=== PATIENT | female | born 1980 | race Caucasian/White ===

== ENCOUNTER 2021-08-17 11:03 | Outpatient (CLI) | payer OTHER, SELFPAY ==
[2021-08-17 12:08] LABS: Influenza A QL RT-PCR Negative (Negative); Influenza B QL RT-PCR Negative (Negative); SARS-CoV-2 RNA PCR Positive (Negative)
== END 2021-08-17 11:04 | disposition home or self-care (01) ==
LOC: CHSLAB 11:07
PROVIDERS: PCP Internal Medicine; Visit Provider Nurse Practitioner Family
DX: U07.1 COVID-19 (principal); J11.1 Influenza due to unidentified influenza virus with other respiratory manifestations; R50.9 Fever, unspecified
CPT/HCPCS: 87502; C9803; U0003; U0005

== ENCOUNTER 2023-02-07 00:12 | Day surgery (SDC) | payer BC, SELFPAY ==
[2022-12-09 08:29] VITALS: BMI 29.2
[2023-02-07 06:34] VITALS: BP 153/106; PULSE 69; RESP 18; TEMP 36.7; O2SAT 100; BMI 29.2
[2023-02-07] MEDS: LACTATED RINGERS 1,000 ML 150 ML IV CONT (06:43)
--- NOTE | 2023-02-07 07:18 | P.PNAN_ITS ---
Anes - Initial Pre Proc Eval Procedure: Operation Date: 02/07/23 07:30 Proposed Procedures p Colonoscopy And Anoscopy - Giacomo Villanueva MD Date/Time: 02/07/23 07:18 Surgeon: Giacomo Villanueva MD Pre Op Diagnosis: Rectal Pain, Diarrhea Patient Data Age: 42 Gender: F Height: 1.68 m Weight: 82 kg Last Vital Signs Temp 36.7 C 02/07/23 06:34 Pulse 69 02/07/23 06:34 Resp 18 02/07/23 06:34 BP 153/106 H 02/07/23 06:34 Pulse Ox 100 02/07/23 06:34 O2 Del Method Room Air 02/07/23 06:34 Allergies Allergy/AdvReac Type Severity Reaction Status Date / Time isotretinoin Allergy Mild RESP Verified 02/07/23 06:30 DISTRESS iohexol Allergy Anaphylactic Verified 02/07/23 06:30 [From contrast - CT, X-RAY] Shock Home Medications Medication Instructions Recorded Confirmed Type alprazolam 0.25 mg tablet 0.25 mg PO QHS PRN Anxiety 06/06/22 02/07/23 History fluoxetine 10 mg capsule (Prozac) 10 mg PO BID 06/06/22 02/07/23 History Patient hx anesthesia problems: none Family hx anesthesia problems: none Results Review: All pre-operative results and documents have been reviewed as part of the pre- operative evaluation. [facility] Past Medical History Medical History (Updated 06/07/22 @ 16:18 by Charisma Hamilton APRN) Abdominal cramping Bloating Hematochezia History of anal fissures Hx of colonic polyps Obesity (BMI 30.0-34.9) Overweight (BMI 25.0-29.9) Pelvic floor dysfunction Surgical History Surgical History (Updated 06/07/22 @ 16:12 by Charisma Hamilton APRN) H/O: hysterectomy History of rectal sphincterotomy Family History Family History Father Hypertension Mother Hypertension Grandparent Breast cancer Myasthenia gravis Social History Social History Years smoked: 20 Smoking status: Current every day smoker Tobacco type: cigarettes Alcohol intake: current Drinks per week: 6 Substance use type: does not use Living arrangements: alone Spiritual care concerns: No Anes - Eval Final PreProcedure Day of Procedure 02/07/23 07:18 Patient weight: overweight Heart: regular rate and rhythm Lungs: clear to auscultation and normal air movement Airway: Mallampati scale class II Neurological: alert and oriented Last oral intake: >/= 8 hours ASA classification: II Emergent: no Anesthetic plan: proceed Anesthesia type and monitoring: general GIVS Results Review: All pre-operative results and documents have been reviewed as part of the pre- operative evaluation. Informed Consent: The patient's anesthetic plan and its attendant risks and benefits were discussed with the patient/family/POA. Questions were solicited and answers provided to the satisfaction of the patient/family/POA.
--- NOTE | 2023-02-07 07:33 | PM.HPGS ---
History of Present Illness History of Present Illness Consent: Risks, benefits, and alternatives have been discussed and questions answered. Patient agrees to proceed with procedure. Chief complaint: Rectal Pain, Diarrhea Narrative: Nicole Moore is a 42 year old female with chronic diarrhea Review of Systems Constitutional: Constitutional: Denies headache(s) and Denies weakness Eyes: Eyes: Denies blurry vision ENT: Reports Normal hearing present, Denies headache(s) and Denies neck pain Cardiovascular: Cardiovascular: Denies chest pain and Denies dyspnea Respiratory: Respiratory: Denies dyspnea Gastrointestinal: Gastrointestinal: Reports no additional gastrointestinal complaints Genitourinary: Genitourinary: Denies dysuria Musculoskeletal: Musculoskeletal: Denies neck pain Integumentary/Breasts: Skin/Breast: Denies dry skin Neurologic: Reports Normal hearing present, Denies headache(s) and Denies weakness Psychiatric: Psychiatric: Denies anxiety Endocrine: Endocrine: Denies change in body appearance Hematologic/Lymphatic: Hematologic/Lymphatic: Denies easy bleeding Allergic/Immunologic: Allergic/Immunologic: Denies urticaria PMFSH Past Medical History Medical History (Updated 02/07/23 @ 07:33 by Giacomo Villanueva MD) Abdominal cramping Bloating Chronic diarrhea Hematochezia History of anal fissures Hx of colonic polyps Obesity (BMI 30.0-34.9) Overweight (BMI 25.0-29.9) Pelvic floor dysfunction Surgical History Surgical History (Updated 06/07/22 @ 16:12 by Charisma Hamilton, ARANZA) H/O: hysterectomy History of rectal sphincterotomy Family History Family History Father Hypertension Mother Hypertension Grandparent Breast cancer Myasthenia gravis Social History Social History Years smoked: 20 Smoking status: Current every day smoker Tobacco type: cigarettes Alcohol intake: current Drinks per week: 6 Substance use type: does not use Living arrangements: alone Spiritual care concerns: No Meds Home Medications and Allergies Home Medications Medication Instructions Recorded Confirmed Type alprazolam 0.25 mg tablet 0.25 mg PO QHS PRN Anxiety 06/06/22 02/07/23 History fluoxetine 10 mg capsule (Prozac) 10 mg PO BID 06/06/22 02/07/23 History Allergies Allergy/AdvReac Type Severity Reaction Status Date / Time isotretinoin Allergy Mild RESP Verified 02/07/23 06:30 DISTRESS iohexol Allergy Anaphylactic Verified 02/07/23 06:30 [From contrast - CT, X-RAY] Shock Vital Signs Vital Signs - 24 hr 02/07/23 06:34 Temperature 98.1 F Pulse Rate 69 Respiratory Rate 18 Blood Pressure 153/106 H Pulse Oximetry 100 Oxygen Delivery Room Air Exam Const: General: comfortable and no acute distress HENMT: Face/Nose/Sinus: Normal nares present Eyes: General: appearance normal, both eyes and all related structures Neck: Neck: no JVD Resp: Auscultation: clear to auscultation bilaterally Cardio: Rate: regular rate Rhythm: regular rhythm GI: Inspection: non-distended GI Palp: Yes Soft to palpation Skin: General skin exam: normal color Neuro: General: gait normal Speech: normal speech Extrem: General: normal to inspection Psych: Mental Status: mental status grossly normal Assessment and Plan Assessment and plan (1) Bloating: Code(s): R14.0 - Abdominal distension (gaseous) Status: Acute Assessment and Plan: serology negative for celiac (2) Chronic diarrhea: Code(s): K52.9 - Noninfective gastroenteritis and colitis, unspecified Status: Acute Assessment and Plan: colonoscopy, consider random colon bx
[2023-02-07 07:52] VITALS: BP 140/84; PULSE 75; RESP 23; O2SAT 100
[2023-02-07 08:02] VITALS: BP 142/98; PULSE 68; RESP 20; O2SAT 100
[2023-02-07 08:12] VITALS: BP 170/98; PULSE 72; RESP 19; O2SAT 100
== END 2023-02-07 08:16 | disposition home or self-care (01) ==
PROVIDERS: PCP Nurse Practitioner; Visit Provider Internal Medicine Gastroenterology
PROC: 0DJD8ZZ Inspection of Lower Intestinal Tract, Via Natural or Artificial Opening Endoscopic (ICD-10-PCS; CPT 45378; principal; 2023-02-07 07:30)
DX: Z12.11 Encounter for screening for malignant neoplasm of colon (principal); R19.7 Diarrhea, unspecified; K57.30 Diverticulosis of large intestine without perforation or abscess without bleeding; D12.5 Benign neoplasm of sigmoid colon; R14.0 Abdominal distension (gaseous); F17.210 Nicotine dependence, cigarettes, uncomplicated
CPT/HCPCS: 45385; 45380; 88305; J2001; J2704; J7120